=== PATIENT | female | born 1970 | race American Indian/Alaskan Native ===

== ENCOUNTER 2016-07-24 09:14 | Outpatient (CLI) | payer BC ==
[2016-07-24 09:32] LABS: Basophils % (Auto) 0.5 % (0.0-1.8); Eosinophils % (Auto) 1.4 % (0.0-4.3); Hematocrit 40.5 % (30.3-42.9); Hemoglobin 13.8 gm/dl (10.1-14.3); Mean Corpuscular HGB Conc 34 % (30-34); Mean Corpuscular Hemoglobin 32 pg (28-32); Mean Corpuscular Volume 94 fl (79-97); Platelet Count 187 K/mm3 (140-440); Red Cell Distribution Width 13.1 % (13.2-15.2); White Blood Count 6.7 K/mm3 (4.5-11.0)
[2016-07-24 09:58] LABS: Erythrocyte Sedimentation Rate 8 mm/Hr (0-20)
[2016-07-24 10:00] LABS: Alanine Aminotransferase 28 units/L (7-56); Albumin 4.1 g/dL (3.9-5); Albumin/Globulin Ratio 1.2 %; Alkaline Phosphatase 64 units/L (35-129); Anion Gap 15 mmol/L; Bilirubin,Total 0.9 mg/dL (0.1-1.2); Blood Urea Nitrogen 10 mg/dL (7-17); Calcium 9.3 mg/dL (8.4-10.2); Carbon Dioxide 29 mmol/L (22-30); Chloride 104.2 mmol/L (98-107); Cholesterol 170 mg/dL (50-199); Glucose 93 mg/dL (65-100); HDL Cholesterol 85 mg/dL (40-59); LDL Cholesterol,Direct 72 mg/dL (50-130); Potassium 4.3 mmol/L (3.6-5.0); Sodium 144 mmol/L (137-145); Total Protein 7.6 g/dL (6.3-8.2); Triglycerides 69 mg/dL (2-149)
== END 2016-07-24 09:15 | disposition home or self-care (01) ==
LOC: LAB 09:14
PROVIDERS: ATTEND Internal Medicine
DX: M19.90 Unspecified osteoarthritis, unspecified site (principal)
CPT/HCPCS: 36415; 80053; 80061; 85025; 85652; 86038; 86140